=== PATIENT | male | born 1995 | race Caucasian/White ===

== ENCOUNTER 2017-09-20 21:53 | Emergency (ER) | payer MEDICAID, OTHER ==
[2017-09-20] MEDS: LORazepam 0.5 MG TABLET PO STA (22:12)
[2017-09-20 22:36] LABS: MUDS CUTOFF CONCENTRATIONS CUTOFF CONC BELOW:
[2017-09-20 22:38] LABS: BASOPHILS # (AUTO) 0.1 10^3/uL (0.0-0.1); BASOPHILS % (AUTO) 0.5 %; EOSINOPHILS # (AUTO) 0.1 10^3/uL (0.0-0.7); EOSINOPHILS % (AUTO) 0.8 %; HGB - HEMOGLOBIN 14.9 g/dL (14.0-18.0); LYMPHOCYTES # (AUTO) 2.1 10^3/uL (1.5-3.5); MEAN CORPUSCULAR HEMOGLOBIN 30.6 pg (27.0-31.0); MEAN CORPUSCULAR VOLUME 89.9 fL (80.0-94.0); MEAN PLATELET VOLUME 8.2 fL (7.4-11.4); MONOCYTES # (AUTO) 0.7 10^3/uL (0.0-1.0); MONOCYTES % (AUTO) 6.6 %; NEUTROPHILS # (AUTO) 8.1 10^3/uL (1.5-6.6); NEUTROPHILS % (AUTO) 73.1 %; PLT - PLATELET COUNT 271 10^3/uL (130-450); RED BLOOD COUNT 4.87 10^6/uL (4.70-6.10); RED CELL DISTRIBUTION WIDTH 13.4 % (12.0-15.0); WHITE BLOOD COUNT 11.1 x10^3/uL (4.8-10.8)
[2017-09-20 22:49] LABS: AMPHETAMINE SCREEN,URINE NEGATIVE (NEGATIVE); BENZODIAZEPINES SCREEN, URINE NEGATIVE (NEGATIVE); COCAINE SCREEN URINE NEGATIVE (NEGATIVE); METHADONE SCREEN, URINE NEGATIVE (NEGATIVE); METHAMPHETAMINES SCREEN, URINE NEGATIVE (NEGATIVE); OPIATE SCREEN, URINE NEGATIVE (NEGATIVE); OXYCODONE SCREEN, URINE NEGATIVE (NEGATIVE); PROPOXYPHENE SCREEN, URINE NEGATIVE (NEGATIVE); TRICYCLIC ANTIDEPRESSANT,URINE NEGATIVE (NEGATIVE)
[2017-09-20 22:51] LABS: ALBUMIN 4.6 g/dL (3.2-5.5); ALBUMIN/GLOBULIN RATIO 1.2 (1.0-2.2); ALKALINE PHOSPHATASE 59 IU/L (42-121); ALT ALANINE AMINOTRANSFERASE 19 IU/L (10-60); AST ASPARTATE AMINOTRANSFERASE 31 IU/L (10-42); BILIRUBIN,TOTAL 1.1 mg/dL (0.2-1.0); BUN - BLOOD UREA NITROGEN 11 mg/dL (6-20); CARBON DIOXIDE - CO2 19 mmol/L (21-32); CHLORIDE 107 mmol/L (101-111); CREATININE 0.9 mg/dL (0.6-1.2); GFR - MDRD 107 (>89); GLUCOSE 93 mg/dL (70-100); LIPASE 28 U/L (22-51); SODIUM 138 mmol/L (135-145); TOTAL PROTEIN 8.3 g/dL (6.7-8.2)
--- NOTE | 2017-09-20 23:11 | ED Physician Documentation ---
PD HPI MHE - Stated complaint Stated Complaint: MHE - Chief complaint Chief Complaint: MHE - History obtained from History obtained from: Patient, Family - History of Present Illness Primary symptom: Anxiety Timing - onset: Today Contributing factors: Sig other Similar symptoms before: No diagnosis Recently seen: Not recently seen - Additional information Additional information: Patient is a 21 year old male with a history of anxiety and depression but never on medications who is presenting to the emergency department for a panic attack. According to mother patient is going through a break up, after 5 years. patient was unable to breath at a regular rate and mother reports that he had spasm of his bilateral upper extremities. Upon initial evaluation in the emergency department patient was tachycardic and breathing at a rate of 50 times per minute. Review of Systems Unable to obtain: Other (patient couldn't tell his history due to the breathing) PD PAST MEDICAL HISTORY - Past Medical History Past Medical History: Yes Respiratory: Asthma Psych: Anxiety - Past Surgical History Past Surgical History: No - Present Medications Home Medications: Ambulatory Orders Medication Instructions Recorded Confirmed Albuterol Sulf [Ventolin Hfa 1 - 2 puffs INH Q4HR PRN 09/20/17 09/20/17 Inhaler] LORazepam [Ativan] 0.5 mg PO HS #10 tablet 09/20/17 - Allergies Allergies/Adverse Reactions: Allergies Allergy/AdvReac Type Severity Reaction Status Date / Time No Known Drug Allergies Allergy Verified 09/20/17 22:03 - Social History Does the pt smoke?: No Smoking Status: Never smoker Does the pt drink ETOH?: No Does the pt have substance abuse?: Yes Substance Use and Type: Marijuana - Immunizations Immunizations are current?: Yes - POLST Patient has POLST: No PD ED PE NORMAL - Vitals Vital signs reviewed: Yes - HEENT HEENT: Atraumatic - Abdomen Abdomen: Non distended - Derm Derm: Normal color, No rash - Extremities Extremities: No deformity - Neuro Neuro: Alert and oriented X 3 Eye Opening: Spontaneous Motor: Obeys Commands Verbal: Oriented GCS Score: 15 PD ED PE EXPANDED - General General: Alert, Anxious - Cardiac Cardiac: Tachy - Respiratory Respiratory: Other (tachypneic ) - Psych Psych: Tearful, Anxious Results - Vitals Vitals: Vital Signs - 24 hr 09/20/17 09/20/17 22:01 23:38 Temperature 36.4 C L Heart Rate 94 92 Respiratory 100 H 14 Rate Blood Pressure 140/98 H 130/96 H O2 Saturation 100 99 Oxygen O2 Source Room air - Labs Labs: Laboratory Tests 09/20/17 09/20/17 09/20/17 22:20 22:32 22:32 WBC 11.1 H RBC 4.87 Hgb 14.9 Hct 43.8 MCV 89.9 MCH 30.6 MCHC 34.0 RDW 13.4 Plt Count 271 MPV 8.2 Neut # (Auto) 8.1 H Lymph # (Auto) 2.1 [place] # (Auto) 0.7 Eos # (Auto) 0.1 Baso # (Auto) 0.1 Absolute Nucleated RBC 0.01 Nucleated RBC % 0.1 Sodium 138 Potassium 3.0 L Chloride 107 Carbon Dioxide 19 L Anion Gap 12.0 BUN 11 Creatinine 0.9 Estimated GFR (MDRD) 107 Glucose 93 Calcium 10.0 Total Bilirubin 1.1 H AST 31 ALT 19 Alkaline Phosphatase 59 Total Protein 8.3 H Albumin 4.6 Globulin 3.7 Albumin/Globulin Ratio 1.2 Lipase 28 Urine Opiates Screen NEGATIVE Ur Oxycodone Screen NEGATIVE Urine Methadone Screen NEGATIVE Ur Propoxyphene Screen NEGATIVE Ur Barbiturates Screen NEGATIVE Ur Tricyclics Screen NEGATIVE Ur Phencyclidine Scrn NEGATIVE Ur Amphetamine Screen NEGATIVE U Methamphetamines Scrn NEGATIVE U Benzodiazepines Scrn NEGATIVE Urine Cocaine Screen NEGATIVE U Cannabinoids Screen NEGATIVE Ethyl Alcohol < 5.0 PD MEDICAL DECISION MAKING - ED course Complexity details: reviewed old records, reviewed results, re-evaluated patient , considered differential, d/w patient, d/w family ED course: Patient was seen and examined at bedside. patient was actively having a panic attack. patient was treated with ativan 1mg po. labs were drawn and urine was collected. patient calmed significantly with the ativan. A lengthy discussion was had with the patient and mother about follow up care. patient stated that he did not want to talk to a mental health provider at this time. Mother stated that they could set a doctor's appointment. Patient's tachycardia resolved. Patient required no further inpatient work up at this time and was stable for discharge with outpatient follow up. - Consults Consults: Consulted (name) - Sepsis Event Vital Signs: Vital Signs - 24 hr 09/20/17 09/20/17 22:01 23:38 Temperature 36.4 C L Heart Rate 94 92 Respiratory 100 H 14 Rate Blood Pressure 140/98 H 130/96 H O2 Saturation 100 99 Oxygen O2 Source Room air Departure - Departure Disposition: 01 Home, Self Care Clinical Impression: Panic attack Condition: Good Instructions: ED Panic Attack Follow-Up: primary,care provider [Other] - Within 3 Days Prescriptions: LORazepam [Ativan] 0.5 mg PO HS #10 tablet Comments: Your symptoms today are being caused by a panic attack. 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 You can take the ativan if your attack becomes severe, but you should try breathing exercises and regular exercise. You should return to the emergency department at any time for thoughts of hurting yourself or anyone else. Discharge Date/Time: 09/20/17 23:38
[2017-09-20 23:40] VITALS: BP 130/96
== END 2017-09-20 23:38 | disposition home or self-care (01) ==
LOC: ED 21:53
DX: F41.0 Panic disorder [episodic paroxysmal anxiety] (principal); F32.9 Major depressive disorder, single episode, unspecified; J45.909 Unspecified asthma, uncomplicated
CPT/HCPCS: 36415; 80053; 80306; 80320; 83690; 85025; 99283

== ENCOUNTER 2019-01-01 19:57 | Emergency (ER) | payer MEDICAID ==
[2019-01-01] MEDS ORDERED: oxyCODONE 5 MG TABLET PO STA (20:18)
[2019-01-01] MEDS ORDERED: IBUPROFEN 800 MG TABLET PO STA (20:18)
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
[2019-01-01] MEDS ORDERED: LIDOCAINE 1%-EPI 1:100000 20 ML MDV SUBQ STA (20:35)
--- NOTE | 2019-01-01 20:51 | XRAY Report ---
Reason: ankle/hand inj Procedure Date: 01/01/2019 Accession Number: [id number] / [id number] Procedure: XR - Hand 3 View RT CPT Code: FULL RESULT: EXAM: RIGHT HAND RADIOGRAPHY EXAM DATE: 01/01/2019 08:38 PM. CLINICAL HISTORY: Ankle/hand inj. COMPARISON: None. TECHNIQUE: 4 views. FINDINGS: Bones: Acute fracture of the right fifth metacarpal neck with moderate volar angulation. No other fracture or focal bone lesion. Joints: Normal. No subluxations. Soft Tissues: Mild soft tissue swelling over the dorsal hand and hypo-thenar eminence. IMPRESSION: Moderately angulated boxer's fracture at the right fifth metacarpal neck. RADIA
[2019-01-01 21:01] VITALS: BP 127/65
--- NOTE | 2019-01-02 05:29 | XRAY Report ---
Reason: FALL ANKLE INJURY Procedure Date: 01/01/2019 Accession Number: [id number] / [id number] Procedure: XR - Ankle 3 View LT CPT Code: FULL RESULT: EXAM: LEFT ANKLE RADIOGRAPHY EXAM DATE: 01/01/2019 08:38 PM. CLINICAL HISTORY: FALL ANKLE INJURY. COMPARISON: None. TECHNIQUE: 3 views. FINDINGS: Bones: Normal. No fractures or bone lesions. Joints: Normal. No effusion. No subluxations. The ankle mortise is normally aligned. Soft Tissues: Soft tissue swelling. IMPRESSION: Normal ankle radiography. RADIA
== END 2019-01-01 21:08 | disposition home or self-care (01) ==
LOC: ED 19:57
DX: S62.336A Displaced fracture of neck of fifth metacarpal bone, right hand, initial encounter for closed fracture (principal); S93.492A Sprain of other ligament of left ankle, initial encounter; X58.XXXA Exposure to other specified factors, initial encounter
CPT/HCPCS: 26605; 73130; 73610; 99283; 99284; A9270; 26755